=== PATIENT | female | born 1945 | race Caucasian/White ===

== ENCOUNTER 2018-08-26 06:03 | Day surgery (SDC) | payer OTHER ==
[2018-08-25 11:16] VITALS: BMI 27.6
[2018-08-26] MEDS ORDERED: MIDAZOLAM HCL 2 MG/2 ML SINGLE DOSE VIAL ONE (07:07)
[2018-08-26] MEDS ORDERED: GLYCOPYRROLATE 0.2 MG/1 ML VIAL ONE (07:07)
[2018-08-26] MEDS ORDERED: TETRACAINE 0.5% OPHTH SOLN 2 ML BOTTLE ONE (07:16)
[2018-08-26] MEDS ORDERED: GENTAMICIN 0.3% OPHTHALMIC OINTMENT 3.5 GM/TUBE ONE (07:16)
[2018-08-26] MEDS ORDERED: LIDOCAINE HCL 1%, 10 MG/ML (20ML VIAL) ONE (07:16)
[2018-08-26] MEDS ORDERED: POVIDONE-IODINE 5% OPHTHALMIC PREP 30 ML SOLUTION ONE (07:17)
[2018-08-26] MEDS ORDERED: BUPIVACAINE HCL/PF 0.5% (5MG/ML) 10 ML VIAL ONE (07:17)
[2018-08-26] MEDS ORDERED: LIDOCAINE 1%/EPI 1:100000 (20 ML MULTI DOSE VIAL) ONE (07:21)
[2018-08-26] MEDS ORDERED: ERYTHROMYCIN 0.5% OPHTHALMIC OINTMENT 3.5 GM TUBE ONE (07:39)
[2018-08-26] MEDS ORDERED: PROPOFOL 20 ML ONE ×2 (07:44)
[2018-08-26] MEDS ORDERED: ceFAZolin SODIUM 1 GM VIAL ONE (07:54)
[2018-08-26] MEDS ORDERED: DEXAMETHASONE SOD PHOSPHATE 4 MG/1 ML VIAL ONE (08:06)
[2018-08-26] MEDS ORDERED: ONDANSETRON 4 MG/2 ML VIAL ONE (08:06)
[2018-08-26] MEDS ORDERED: oxyCODONE HCL 5 MG TABLET PO PRN (08:25)
[2018-08-26] MEDS ORDERED: ONDANSETRON 4 MG/2 ML VIAL IVPUSH PRN (08:25)
[2018-08-26] MEDS ORDERED: LACTATED RINGERS SOLUTION 1,000 ML IV SCH (08:30)
--- NOTE | 2018-08-26 09:01 | OP ---
DATE OF OPERATION: 08/26/2018 PREOPERATIVE DIAGNOSIS: Involutional ptosis, worsened down gaze interfering with knitting, reading, and other tasks. POSTOPERATIVE DIAGNOSIS: Involutional ptosis, worsened down gaze interfering with knitting, reading, and other tasks. PROCEDURE: Ptosis repair of right upper lid via Foster muscle resection. SURGEON: Mariana Chen MD OUTPATIENT SURGERY RN: None. ANESTHESIA: Local with sedation. COMPLICATIONS: None. ESTIMATED BLOOD LOSS: Less than 1 mL. DESCRIPTION OF OPERATIVE PROCEDURE: Patient brought to the operating room, placed on the operating room table. Vital signs monitored by Anesthesia. Tetracaine was placed in both eyes. Timeout was performed. Patient was given intravenous sedation, and 2% xylocaine with 1:100,000 epinephrine was injected for 1 to 1.5 mL along the orbital roof, approximately 1 to 1.5 cm posterior to the rim for a frontal nerve block. A small amount of similar anesthetic was given with a 30-gauge needle. The original one was given with a 25-gauge needle at the central anterior-superior lid margin for anesthesia in that area. Patient was prepped and draped in usual sterile fashion, exposing both eyes. Left eye was just closed manually. A 4-0 silk traction stitch was passed through the central lid margin in the right upper lid, everted over a Desmarres retractor, and then, 3 browne were made 3.5 to 3.75 mm above the tarsal border; one was placed centrally in the apex of the tarsus, one was placed nasally, and temporarily 7 mm away from that. Each of those browne was approximately 3.5 to 3.75 mm above the tarsal border. A 6-0 silk was then passed through each of the 3 browne, and then, the 6-0 silk was used in a quadrilateral kind of a configuration to tent up the conjunctiva. Forceps were used to separate the conjunctiva from the overlying levator and skin prior to tenting up the conjunctiva, and then, the conjunctiva was tented up, the Desmarres was removed, and a Putterman clamp was used to incorporate the elevated conjunctiva and Foster tissue from the superior tarsus and to the markings and back to the tarsus for a total resection of 7 to 7.5 mm. The skin was tested for traction. Initially, there seemed to be some traction. Therefore, the clamp was released and replaced in similar fashion, and this time, the skin then tented away from the clamp without incorporation. A double-arm 5-0 plain was now passed from temporal to nasal 1.5 mm away from the clamp, and then, the tissues within the clamp were resected using a 15 blade, avoiding the plain suture. Once the resection was removed along with the silk suture, the same needle was used to run from nasal to temporal in a continuous fashion toward the temporal end of the wound, closing the resection defect. Each arm of the suture was then passed through the conjunctiva, and each arm was passed through the full thickness eyelid, exiting on the temporal eyelid skin. The lid was everted, demonstrating good closure of the wound without any internal buckling or presence of the suture, and, therefore, the suture was tied externally with multiple knots. Erythromycin ointment was placed in the eye and on the suture. Traction suture was removed, and the patient was awakened from anesthesia and taken to the recovery room in stable condition. There were no complications. MARIANA CHEN M.D. [id number]
[2018-08-26 09:54] VITALS: TEMP 98.2
[2018-08-26 10:24] VITALS: BP 131/73; PULSE 66
== END 2018-08-26 10:30 | disposition home or self-care (01) ==
LOC: FASU 06:03
PROVIDERS: ATTEND Ophthalmology
PROC: 08BN0ZZ Excision of Right Upper Eyelid, Open Approach (ICD-10-PCS; principal; 2018-08-26 08:00)
DX: H02.421 Myogenic ptosis of right eyelid (principal)
CPT/HCPCS: 94760